=== PATIENT | female | born 1965 | race Caucasian/White ===

== ENCOUNTER 2020-10-12 07:55 | Outpatient (CLI) | payer BC ==
--- NOTE | 2020-10-12 09:48 | BD ---
DEXA BONE DENSITY STUDY: Date: 10/12/2020 HISTORY: Postmenopausal. FINDINGS: Lumbar Spine: BMD (g/cm2) L1 0.854 T-Score: -1.2 L2 0.937 T-Score: -0.8 L3 0.901 T-Score: -1.7 L4 0.839 T-Score: -2.0 Total 0.879 T-Score: -1.5 Left Femoral Neck: 0.766 T-Score: -0.8 Total Femur: 0.993 T-Score: +0.4 IMPRESSION: 1. Osteopenia of the lumbar spine and normal bone mineral density of the left femoral neck. 2. The 10 year fracture risk for a major osteoporotic fracture is 5% and for a hip fracture is 0.2%. These fracture probabilities are calculated for an untreated patient. POS: [facility]
== END 2020-10-12 07:56 | disposition home or self-care (01) ==
LOC: BICMAMMO 07:55
PROVIDERS: ATTEND Family Medicine
DX: Z13.820 Encounter for screening for osteoporosis (principal); Z78.0 Asymptomatic menopausal state; M85.88 Other specified disorders of bone density and structure, other site
CPT/HCPCS: 77080

== ENCOUNTER 2021-07-07 13:00 | Outpatient (CLI) | payer BC | END 2021-07-07 13:01 | disposition home or self-care (01) | LOC: BICMAMMO 13:00 | PROVIDERS: ATTEND Family Medicine | DX: Z12.31 Encounter for screening mammogram for malignant neoplasm of breast (principal); Z80.3 Family history of malignant neoplasm of breast | CPT/HCPCS: 77063; 77067 ==

== ENCOUNTER 2022-10-31 13:10 | Outpatient (CLI) | payer BC | END 2022-10-31 13:11 | disposition home or self-care (01) | LOC: BICMAMMO 13:10 | PROVIDERS: ATTEND Family Medicine | DX: Z12.31 Encounter for screening mammogram for malignant neoplasm of breast (principal); Z80.3 Family history of malignant neoplasm of breast | CPT/HCPCS: 77063; 77067 ==

== ENCOUNTER 2023-11-13 11:19 | Outpatient (CLI) | payer BC | END 2023-11-13 11:20 | disposition home or self-care (01) | LOC: BICMAMMO 11:19 | PROVIDERS: ATTEND Family Medicine | DX: Z12.31 Encounter for screening mammogram for malignant neoplasm of breast (principal); Z80.3 Family history of malignant neoplasm of breast | CPT/HCPCS: 77063; 77067 ==